=== PATIENT | female | born 1970 | race Caucasian/White ===

== ENCOUNTER → 2018-01-17 | Outpatient (CLI) | payer BC ==
--- NOTE | 2018-01-19 12:31 | TST ---
[place] [address] TREADMILL STRESS TEST Name: SONIYA AGUAYO Room: [facility]#: [id number] Admission: 01/17/18 Attend Phys: Julius Chambers, Discharge: Date of : 72 Date of Service: 01/17/18 1712 Report #: [id number] THIS REPORT FOR: //name// CC: Julius Chambers MD [facility] DATE OF SERVICE: 01/17/2018 Resting 12-lead electrocardiogram demonstrates sinus rhythm with nonspecific inferolateral ST-T alterations. The patient exercised for 11 minutes and 3 seconds according to a Hong protocol, stopping because of shortness of breath, but denying chest discomfort. The patient achieved a peak heart rate of 169, 97% of the age predicted maximum. Blood pressure is 152/99 initially, increasing to 200/91 during exercise, falling to 149/81 during the post-exercise phase. There was a minor nonspecific increase in the inferolateral ST-T changes during exercise; the changes are entirely indeterminate for ischemia in the context of the baseline abnormalities. There were no significant supraventricular or ventricular arrhythmias. IMPRESSION: 1. Indeterminate treadmill exercise test for provocation of ischemia by virtue of baseline ST-T abnormalities. 2. Minor nonspecific increase in the baseline ST-T abnormalities during exercise; these changes are entirely nonspecific. 3. No chest pain provoked by exertion. 4. Appropriate heart rate and systolic blood pressure response to exercise. 5. Systemic hypertension at rest. 6. Excellent level of fitness for age. <ELECTRONICALLY SIGNED> By: Julius Baez MD, FACC 01/19/18 1231 1712 [id number] Julius Baez MD, FACC /nt
== END ==
LOC: M.CRD 11:00
DX: R94.31 Abnormal electrocardiogram [ECG] [EKG] (principal)